=== PATIENT | female | born 1980 | race Two or more races ===

== ENCOUNTER 2023-04-07 14:19 | Emergency (ER) | payer MEDICAID, OTHER ==
[~2023-04-07] VITALS: Ht 162.6 cm; Wt 72.0 kg
[2023-04-07 14:23] VITALS: BP 159/90; O2SAT 98
[2023-04-07] MEDS ORDERED: ACETAMINOPHEN 325MG TABLET PO STA (14:38)
[2023-04-07] MEDS ORDERED: ONDANSETRON 4MG ODT PO STA (14:38)
[2023-04-07 15:05] LABS: BASOPHILS % 0.4 % (0.0-2.0); EOSINOPHILS % 1.5 % (0.0-5.0); HEMATOCRIT. 42.9 % (36.0-48.0); HEMOGLOBIN. 14.8 g/dL (12.0-16.0); LYMPHOCYTES % 20.8 % (20.0-50.0); MEAN CORPUSCULAR HEMOGLOBIN 31.8 pg (28.0-32.0); MEAN CORPUSCULAR HGB CONC 34.4 g/dL (31.0-37.0); MEAN CORPUSCULAR VOLUME 92.2 fL (81.0-99.0); MEAN PLATELET VOLUME 7.6 fl (7.4-10.4); MONOCYTES % 7.4 % (2.0-8.0); NEUTROPHILS % 69.9 % (40.0-76.0); PLATELET 296 x1000/uL (130-400); RED BLOOD CELL COUNT 4.65 mill/uL (4.2-5.4); RED CELL DISTRIBUTION WIDTH 12.5 % (11.6-14.6); WHITE BLOOD COUNT 9.1 x1000/uL (4.5-11.0)
[2023-04-07 15:28] LABS: HCG SCREEN NEGATIVE
[2023-04-07 15:33] LABS: ALANINE AMINOTRANSFERASE 43 IU/L (10-49); ALBUMIN 4.4 g/dL (3.2-4.8); ASPARTATE AMINOTRANSFERASE 31 IU/L (<34); BILIRUBIN TOTAL 0.6 mg/dL (0.1-1.0); CALCIUM 9.3 mg/dL (8.7-10.4); CARBON DIOXIDE 25 mEq/L (21-32); CHLORIDE 105 mEq/L (98-107); CREATININE 0.7 mg/dL (0.6-1.0); GLUCOSE 134 mg/dL (70-105); POTASSIUM 3.8 mEq/L (3.5-5.1); PROTEIN TOTAL 8.6 g/dL (6.0-8.3); SODIUM 137 mEq/L (136-145); TROPONIN I HIGH SENSITIVITY 19 ng/L (3.0-34); UREA NITROGEN BLOOD 12 mg/dL (9-23)
[2023-04-07] MEDS ORDERED: ACETAMINOPHEN 325MG TABLET PO NR (17:15)
[2023-04-07] MEDS ORDERED: ONDANSETRON 4MG ODT PO NR (17:15)
[2023-04-07] MEDS ORDERED: NAPR220C61 MT (19:03)
[2023-04-07 19:19] VITALS: PULSE 88; RESP 20; TEMP 98.4
== END 2023-04-07 19:29 | disposition home or self-care (01) ==
LOC: ER 14:19
DX: S09.90XA Unspecified injury of head, initial encounter (principal); I10 Essential (primary) hypertension; X58.XXXA Exposure to other specified factors, initial encounter; Y93.89 Activity, other specified; Y92.89 Other specified places as the place of occurrence of the external cause; Y99.8 Other external cause status; V98.8XXA Other specified transport accidents, initial encounter
CPT/HCPCS: 99284; 70450; 80053; 84703; 83690; 85025; 84484; 36415; 93005; Q0162